=== PATIENT | female | born 1975 | race Caucasian/White ===

== ENCOUNTER 2017-05-03 14:23 | Outpatient (CLI) | payer OTHER ==
--- NOTE | 2017-05-03 17:30 | MRI Report ---
EXAM: MRI CERVICAL SPINE WITHOUT CONTRAST EXAM DATE: 05/03/2017 04:04 PM. CLINICAL HISTORY: Cervicalgia. COMPARISONS: None. TECHNIQUE: Multiplanar, multisequence T1-weighted and fluid-sensitive sequences of the cervical spine without contrast. Other: None. FINDINGS: Neurologic Structures: The visualized posterior fossa structures are unremarkable. No signal abnormal ity in the visualized spinal cord. Alignment: Normal. No scoliosis or spondylolisthesis. Bone Marrow: No gross fractures or bone lesions. No marrow edema. Interspace Levels/Facets: C1-C2: Some osteoarthritic change is seen at the anterior C1-C2 articulation. No fractures. C2-C3: Unremarkable. C3-C4: Unremarkable. C4-C5: Mild broad-based disk bulge touches the cord. No cord edema or central stenosis. AP diameter i s 9.5 mm and CSF surrounds the cord. C5-C6: Mild broad-based disk bulge touches the cord. No cord remodeling. AP distance is 8.9 mm. Mild central stenosis. No foraminal stenosis. C6-C7: Unremarkable. C7-T1: Unremarkable. Musculature: Normal. No edema or fatty atrophy. Other: The paravertebral and prevertebral soft tissues are normal. IMPRESSION: 1. Spinal cord is unremarkable. No areas of abnormal cord signal are identified. 2. 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 3. C2-C3 and C3-C4 are normal. 4. C4-C5 shows a mild broad-based bulge touching the cord. No cord edema. AP diameter is within range of normal. No stenosis. 5. C5-C6 shows mild broad-based disk bulge touching the cord without cord remodeling. AP distance is 8.9 mm. No stenosis. 6. C6-C7 and C7-T1 are normal. [facility] Referring Provider Line: [phone] SITE ID: [id number]
== END 2017-05-03 14:24 | disposition home or self-care (01) ==
LOC: DI 14:23
PROVIDERS: ATTEND Registered Nurse Diabetes Educator
DX: M47.892 Other spondylosis, cervical region (principal); M50.821 Other cervical disc disorders at C4-C5 level
CPT/HCPCS: 72141